=== PATIENT | female | born 1955 | race Caucasian/White ===

== ENCOUNTER 2018-12-14 15:13 | Emergency (ER) | payer MEDICARE, OTHER ==
[~2018-12-14] VITALS: Ht 170.2 cm; Wt 84.1 kg
[~2018-12-14 15:13] MED LIST: ALD50T PO; ALEN70TA13; AMOX-422 PO; CETI5TAB6; COU5T PO; DIGO125T PO; FURO80TA3 PO; HYDR-3193 PO; MULT-1039 PO; OMEG1CAP PO; ROPI2TAB4 PO; SILD20TA PO; ZOLP5TAB8 PO; [UNRECOGNIZED DRUG - OTHER]; vit C
[2018-12-14 16:12] LABS: BASOPHILS # (AUTO) 0.1 X10'3 (0-0.2); EOSINOPHILS # (AUTO) 0.1 X10'3 (0-0.9); EOSINOPHILS % (AUTO) 0.8 % (0-6); HEMOGLOBIN 14.7 g/dl (12.0-16.0); LYMPHOCYTES # (AUTO) 1.9 X10'3 (1.1-4.8); MEAN CORPUSCULAR HGB CONC 34.4 g/dL (33.0-36.5); MONOCYTES # (AUTO) 1.3 X10'3 (0-0.9)
[2018-12-14 16:14] LABS: BASOPHILS % (AUTO) 1.1 % (0-1); HEMATOCRIT 42.7 % (35.0-45.0); MEAN CORPUSCULAR HEMOGLOBIN 31.7 PG (27.0-31.0); MEAN CORPUSCULAR VOLUME 91.9 FL (78-98); MEAN PLATELET VOLUME 10.3 FL (7.4-10.4); NEUTROPHILS # (AUTO) 6.1 X10'3 (1.8-7.7); NEUTROPHILS % (AUTO) 64.1 % (42-75); PLATELET COUNT 208 X10'3 (140-440); RED BLOOD COUNT 4.65 X10'6 (4.20-5.60); RED CELL DISTRIBUTION WIDTH 15.7 % (11.5-14.5); WHITE BLOOD COUNT 9.5 X10'3 (4.5-11.0)
[2018-12-14 16:22] LABS: ALANINE AMINOTRANSFERASE 30 U/L (12-78); ALBUMIN 2.8 G/DL (3.4-5.0); ALBUMIN/GLOBULIN RATIO 0.5 (1.1-1.5); ALKALINE PHOSPHATASE 361 IU/L (46-116); ANION GAP 11 (8-16); ASPARTATE AMINO TRANSFERASE 282 U/L (10-37); BILIRUBIN,TOTAL 1.6 MG/DL (0.1-1.0); BLOOD UREA NITROGEN 12 MG/DL (7-18); BUN/CREATININE RATIO 10.9 (6.6-38.0); CALCIUM 9.6 MG/DL (8.5-10.1); CHLORIDE 97 MMOL/L (99-107); GLUCOSE 81 MG/DL (70-104); POTASSIUM 3.6 MMOL/L (3.5-5.1); SODIUM 133 MMOL/L (135-145); TOTAL PROTEIN 7.9 G/DL (6.4-8.2); eGFR 50 ML/MIN
[2018-12-14 16:26] LABS: LARGE PLATELETS FEW; PLATELET ESTIMATE NORMAL
[2018-12-14] MEDS ORDERED: morphine 4 MG/ML inj SYRINge IV PRN (18:35)
[2018-12-14] MEDS ORDERED: normal saline 1000ML IV soln IVB ONE (18:35)
[2018-12-14] MEDS ORDERED: ondansetron/PF 4mg/2ml inj IV ONE (18:35)
[2018-12-14 18:58] LABS: CLARITY,URINE SLIGHTLY CLOUDY (Clear); COLOR,URINE AMBER (Yellow); GLUCOSE, URINE NEGATIVE (Neg); KETONES,URINE NEGATIVE (Neg); LEUKOCYTE ESTERASE ,URINE SMALL (Neg); NITRITES, URINE NEGATIVE (Neg); OCCULT BLOOD,URINE NEGATIVE (Neg); PH,URINE 5.5 (4.8-8.0); PROTEIN,URINE 30 mg/dl (Neg)
[2018-12-14 19:17] LABS: UA COLLECTION TYPE CLN CATCH MIDSTREAM
[2018-12-14 19:47] LABS: FINE GRANULAR CAST 0-3 /LPF (NEGATIVE)
[2018-12-14 19:48] LABS: BACTERIA,URINE 3+ /HPF (Neg); WBC CLUMPS,URINE FEW /HPF (NEGATIVE)
[2018-12-14 19:49] LABS: MUCUS STRANDS NONE SEEN /LPF (Neg); RBC,URINE NONE SEEN /HPF (0-2); SQUAMOUS EPITHELIAL CELL,UR NONE SEEN /LPF (FEW)
[2018-12-14 20:07] VITALS: BP 113/67
--- NOTE | 2018-12-19 10:57 | NUR ---
PT CALLED AND NOTIFIED THAT URINE CULTURE TAKING ON 12/14/18 WAS POSITIVE FOR UTI AND THAT ABX WERE NEEDED. PT RE[facility] [address] IN [place]. KEFLEX 500MG PO BID x7 DAYS [facility].
== END 2018-12-14 20:09 | disposition home or self-care (01) ==
LOC: ER 15:13
DX: R10.31 Right lower quadrant pain (principal); R53.83 Other fatigue; R11.0 Nausea; R19.7 Diarrhea, unspecified; K59.00 Constipation, unspecified; I27.20 Pulmonary hypertension, unspecified; Z79.2 Long term (current) use of antibiotics; Z79.01 Long term (current) use of anticoagulants; Z79.899 Other long term (current) drug therapy; Z90.81 Acquired absence of spleen; Z90.49 Acquired absence of other specified parts of digestive tract
CPT/HCPCS: 36415; 74176; 80053; 81001; 85025; 85610; 87077; 87088; 87186; 96374; 96375; 99284; J2270; J2405; J7030

== ENCOUNTER 2019-01-05 11:12 | Inpatient (IN) | payer MEDICARE, OTHER ==
[~2019-01-05] VITALS: Ht 170.2 cm; Wt 80.5 kg
--- NOTE | 2019-01-05 14:55 | NUR ---
RECEIVED PATIENT IN BED 6 FROM THE [facility].
--- NOTE | 2019-01-05 15:06 | NUR ---
AWAITING ED PROVIDER.
[2019-01-05 15:46] LABS: BASOPHILS # (AUTO) 0.1 X10'3 (0-0.2); BASOPHILS % (AUTO) 0.4 % (0-1); EOSINOPHILS % (AUTO) 0.1 % (0-6); HEMATOCRIT 39.6 % (35.0-45.0); HEMOGLOBIN 13.8 g/dl (12.0-16.0); LYMPHOCYTES # (AUTO) 1.3 X10'3 (1.1-4.8); LYMPHOCYTES % (AUTO) 11.1 % (21-51); MEAN CORPUSCULAR HEMOGLOBIN 31.5 PG (27.0-31.0); MEAN CORPUSCULAR HGB CONC 34.8 g/dL (33.0-36.5); MEAN CORPUSCULAR VOLUME 90.3 FL (78-98); MEAN PLATELET VOLUME 10.7 FL (7.4-10.4); MONOCYTES # (AUTO) 0.8 X10'3 (0-0.9); MONOCYTES % (AUTO) 6.9 % (2-12); NEUTROPHILS # (AUTO) 9.5 X10'3 (1.8-7.7); NEUTROPHILS % (AUTO) 81.5 % (42-75); PLATELET COUNT 200 X10'3 (140-440); RED BLOOD COUNT 4.39 X10'6 (4.20-5.60); RED CELL DISTRIBUTION WIDTH 15.1 % (11.5-14.5); WHITE BLOOD COUNT 11.6 X10'3 (4.5-11.0)
[2019-01-05 15:48] LABS: ALANINE AMINOTRANSFERASE 41 U/L (12-78); ALBUMIN 2.7 G/DL (3.4-5.0); ALBUMIN/GLOBULIN RATIO 0.6 (1.1-1.5); ALKALINE PHOSPHATASE 409 IU/L (46-116); ANION GAP 3 (8-16); ASPARTATE AMINO TRANSFERASE 421 U/L (10-37); BILIRUBIN,TOTAL 2.5 MG/DL (0.1-1.0); BLOOD UREA NITROGEN 28 MG/DL (7-18); BUN/CREATININE RATIO 22.4 (6.6-38.0); CHLORIDE 76 MMOL/L (99-107); CREATININE 1.25 MG/DL (0.40-0.90); GLUCOSE 88 MG/DL (70-104); TOTAL CARBON DIOXIDE 35.4 MMOL/L (24-32); TOTAL PROTEIN 7.6 G/DL (6.4-8.2); eGFR 43 ML/MIN
[2019-01-05 15:50] LABS: SODIUM 114 MMOL/L (135-145)
[2019-01-05 15:51] LABS: POTASSIUM 2.9 MMOL/L (3.5-5.1)
[2019-01-05] MEDS ORDERED: potassium Cl 20 mEq SR tablet PO STA (15:58)
[2019-01-05 16:15] LABS: CLARITY,URINE SLIGHTLY CLOUDY (Clear); COLOR,URINE YELLOW (Yellow); GLUCOSE, URINE NEGATIVE (Neg); KETONES,URINE NEGATIVE (Neg); LEUKOCYTE ESTERASE ,URINE TRACE (Neg); NITRITES, URINE NEGATIVE (Neg); OCCULT BLOOD,URINE NEGATIVE (Neg); PROTEIN,URINE 30 mg/dl (Neg); UROBILINOGEN,URINE 0.2 E.U/dL (0.2-1.0)
[2019-01-05 16:17] LABS: URINE HCG NEGATIVE (NEG)
[2019-01-05 16:20] LABS: LARGE PLATELETS FEW; PLATELET ESTIMATE NORMAL
[2019-01-05 16:23] LABS: UA COLLECTION TYPE CLN CATCH MIDSTREAM
[2019-01-05 16:25] LABS: HYALINE CASTS 0-3 /LPF (NEGATIVE)
[2019-01-05 16:29] LABS: COARSE GRANULAR CAST 0-3 /LPF (NEGATIVE); FINE GRANULAR CAST 0-3 /LPF (NEGATIVE); RED BLOOD CELL CASTS,URINE 0-3 /LPF (NEGATIVE)
[2019-01-05 16:30] LABS: WBC,URINE 50-100 /HPF (0-4)
[2019-01-05 16:34] LABS: BACTERIA,URINE 4+ /HPF (Neg); RBC,URINE 0-2 /HPF (0-2); SQUAMOUS EPITHELIAL CELL,UR NONE SEEN /LPF (FEW)
[2019-01-05 16:45] LABS: MAGNESIUM 2.2 MG/DL (1.5-2.4)
[2019-01-05] MEDS ORDERED: ZAR2.5T PO (17:47)
[2019-01-05] MEDS ORDERED: LEVO50TA PO (17:47)
[2019-01-05] MEDS ORDERED: normal saline 1000ml 1,000 ML IV SCH (17:59)
[2019-01-05] MEDS ORDERED: magnesium Cl slow-release 64mg tablet PO PRN (18:00)
[2019-01-05] MEDS ORDERED: acetaminophen 325mg tablet PO PRN ×2 (18:00)
[2019-01-05] MEDS ORDERED: ondansetron/PF 4mg/2ml inj IV PRN (18:00)
[2019-01-05] MEDS ORDERED: morphine 2 MG/ML inj. syringe IV PRN (18:00)
[2019-01-05] MEDS ORDERED: magnesium 4gm in 100ml NS 100 ML IV PRN (18:00)
[2019-01-05] MEDS ORDERED: potassium CL 10mEq/100ml bag 100 ML IV PRN ×2 (18:00)
[2019-01-05] MEDS ORDERED: HYDROcodone/acetaminophen 5mg/325mg tablet PO PRN (18:00)
[2019-01-05] MEDS ORDERED: magnesium 2GM in 50ml NS 50 ML IV PRN (18:00)
--- NOTE | 2019-01-05 20:20 | NUR ---
Received report from Dee BARRY in ED. Was given time to ask questions and have them answered. Will assume care when patient arrives to floor.
[2019-01-05] MEDS ORDERED: temazepam 15mg capsule PO PRN (21:00)
[2019-01-05] MEDS: docusate sod 100mg capsule PO SCH (21:30)
[2019-01-05] MEDS: heparin, porcine 5000 units/ml vial SQ SCH (21:31)
[2019-01-05] MEDS: potassium Cl 20 mEq SR tablet PO PRN (21:40)
[2019-01-05 22:00] VITALS: BP 90/47
[2019-01-06] VITALS (7 sets, daily range): BP systolic 90–109; BP diastolic 49–60
[2019-01-06] MEDS: potassium Cl 20 mEq SR tablet PO PRN (01:52)
[2019-01-06 05:41] LABS: MONOCYTES # (AUTO) 0.9 X10'3 (0-0.9)
[2019-01-06 05:50] LABS: BASOPHILS # (AUTO) 0.1 X10'3 (0-0.2); BASOPHILS % (AUTO) 0.6 % (0-1); EOSINOPHILS # (AUTO) 0.1 X10'3 (0-0.9); EOSINOPHILS % (AUTO) 0.6 % (0-6); HEMATOCRIT 38.7 % (35.0-45.0); HEMOGLOBIN 13.7 g/dl (12.0-16.0); LYMPHOCYTES # (AUTO) 1.4 X10'3 (1.1-4.8); LYMPHOCYTES % (AUTO) 15.8 % (21-51); MEAN CORPUSCULAR HEMOGLOBIN 31.7 PG (27.0-31.0); MEAN CORPUSCULAR HGB CONC 35.3 g/dL (33.0-36.5); MEAN CORPUSCULAR VOLUME 89.9 FL (78-98); MEAN PLATELET VOLUME 10.8 FL (7.4-10.4); MONOCYTES % (AUTO) 9.9 % (2-12); NEUTROPHILS # (AUTO) 6.6 X10'3 (1.8-7.7); NEUTROPHILS % (AUTO) 73.1 % (42-75); PLATELET COUNT 189 X10'3 (140-440); RED BLOOD COUNT 4.31 X10'6 (4.20-5.60); RED CELL DISTRIBUTION WIDTH 14.8 % (11.5-14.5)
--- NOTE | 2019-01-06 06:15 | NUR ---
Problems reprioritized. Patient report given, questions answered & plan of care reviewed with Faiza BARRY and Esmer RN.
--- NOTE | 2019-01-06 06:20 | NUR ---
Patient in room PCU 3028B. I have received report from Mickey BARRY and had the opportunity to ask questions and assume patient care.
[2019-01-06 06:29] LABS: ALANINE AMINOTRANSFERASE 35 U/L (12-78); ANION GAP 7 (8-16); CHLORIDE 80 MMOL/L (99-107); MAGNESIUM 2.1 MG/DL (1.5-2.4); POTASSIUM 3.7 MMOL/L (3.5-5.1); TOTAL CARBON DIOXIDE 29.4 MMOL/L (24-32)
[2019-01-06 06:55] LABS: ALBUMIN 2.4 G/DL (3.4-5.0); ALBUMIN/GLOBULIN RATIO 0.5 (1.1-1.5); ASPARTATE AMINO TRANSFERASE 385 U/L (10-37); BILIRUBIN,TOTAL 2.3 MG/DL (0.1-1.0); BLOOD UREA NITROGEN 26 MG/DL (7-18); BUN/CREATININE RATIO 21.5 (6.6-38.0); CALCIUM 9.2 MG/DL (8.5-10.1); CREATININE 1.21 MG/DL (0.40-0.90); GLUCOSE 74 MG/DL (70-104); TOTAL PROTEIN 6.9 G/DL (6.4-8.2); eGFR 45 ML/MIN
[2019-01-06 07:04] LABS: ALKALINE PHOSPHATASE 379 IU/L (46-116)
[2019-01-06 07:06] LABS: SODIUM 116 MMOL/L (135-145)
--- NOTE | 2019-01-06 07:07 | NUR ---
CRITICAL LAB VALUE TAKEN FROM LAB, REPORTED TO PRIMARY RN.
--- NOTE | 2019-01-06 07:26 | NUR ---
Paged hospitalist, Dr. Rudolph, RE critical sodium called from lab. PAGER ID: [phone] MESSAGE: Esmer wise [phone]. RE Medhat Michelle 3028B. Lab reported critical sodium of 116, up from 114 on 01/05. Thank you!
[2019-01-06] MEDS: CefTRIAXone 2gm/D5W 50ml 50 ML IV SCH (07:44)
[2019-01-06] MEDS: levoTHYROXINE 25mcg tablet PO SCH (07:45)
[2019-01-06] MEDS: digoxin 125mcg (0.125mg) tablet PO SCH (07:46)
[2019-01-06] MEDS: docusate sod 100mg capsule PO SCH ×2 (07:49→19:04)
[2019-01-06] MEDS: K and/or MAG REPLACEMENT MC SCH (07:50)
[2019-01-06] MEDS: heparin, porcine 5000 units/ml vial SQ SCH ×2 (07:50→19:04)
[2019-01-06] MEDS ORDERED: normal saline 1000ml 1,000 ML IV SCH (08:30)
[2019-01-06] MEDS: normal saline 1000ml 1,000 ML IV SCH (17:14)
--- NOTE | 2019-01-06 18:09 | NUR ---
Problems reprioritized. Patient report given, questions answered & plan of care reviewed with Cara BARRY.
--- NOTE | 2019-01-06 18:24 | NUR ---
New hire documentation: I have reviewed and agree with all interventions, assessments performed and documented by Esmer BARRY.
--- NOTE | 2019-01-06 18:30 | NUR ---
Patient in room PCU 3028. I have received report from Faiza BARRY and Esmer BARRY and had the opportunity to ask questions and assume patient care.
[2019-01-06] MEDS: lactobacillus rhamnosus 10,000 MMU CELLS/CAPSULE PO SCH (19:04)
[2019-01-07] VITALS (8 sets, daily range): BP systolic 87–113; BP diastolic 43–66
[2019-01-07 06:10] LABS: BASOPHILS # (AUTO) 0.1 X10'3 (0-0.2); EOSINOPHILS # (AUTO) 0.1 X10'3 (0-0.9); HEMOGLOBIN 13.7 g/dl (12.0-16.0); LYMPHOCYTES # (AUTO) 1.4 X10'3 (1.1-4.8); LYMPHOCYTES % (AUTO) 14.5 % (21-51); MEAN CORPUSCULAR HEMOGLOBIN 31.4 PG (27.0-31.0); MEAN CORPUSCULAR HGB CONC 34.3 g/dL (33.0-36.5); MEAN CORPUSCULAR VOLUME 91.4 FL (78-98); MEAN PLATELET VOLUME 10.9 FL (7.4-10.4); MONOCYTES % (AUTO) 10.2 % (2-12); NEUTROPHILS # (AUTO) 6.9 X10'3 (1.8-7.7); NEUTROPHILS % (AUTO) 73.3 % (42-75); PLATELET COUNT 187 X10'3 (140-440); RED BLOOD COUNT 4.37 X10'6 (4.20-5.60); RED CELL DISTRIBUTION WIDTH 15.2 % (11.5-14.5); WHITE BLOOD COUNT 9.4 X10'3 (4.5-11.0)
--- NOTE | 2019-01-07 06:20 | NUR ---
Patient in room PCU 3028. I have received report from JHONNY Marroquin and had the opportunity to ask questions and assume patient care. Pt awake during report. All needs met.
--- NOTE | 2019-01-07 06:21 | NUR ---
Patient in room U 3028. I have received report from JHONNY Marroquin and had the opportunity to ask questions and assume patient care. Patient awake in bed with no complaints at this time.
--- NOTE | 2019-01-07 06:27 | NUR ---
Problems reprioritized. Patient report given, questions answered & plan of care reviewed with Lucinda BARRY and Yvrose BARRY.
[2019-01-07 06:47] LABS: ALANINE AMINOTRANSFERASE 38 U/L (12-78); ALBUMIN 2.4 G/DL (3.4-5.0); ALBUMIN/GLOBULIN RATIO 0.5 (1.1-1.5); ALKALINE PHOSPHATASE 387 IU/L (46-116); ANION GAP 8 (8-16); ASPARTATE AMINO TRANSFERASE 356 U/L (10-37); BILIRUBIN,TOTAL 2.1 MG/DL (0.1-1.0); BLOOD UREA NITROGEN 23 MG/DL (7-18); BUN/CREATININE RATIO 21.1 (6.6-38.0); CALCIUM 9.4 MG/DL (8.5-10.1); CHLORIDE 92 MMOL/L (99-107); CREATININE 1.09 MG/DL (0.40-0.90); GLUCOSE 78 MG/DL (70-104); MAGNESIUM 2.2 MG/DL (1.5-2.4); POTASSIUM 3.2 MMOL/L (3.5-5.1); SODIUM 129 MMOL/L (135-145); TOTAL CARBON DIOXIDE 29.2 MMOL/L (24-32); eGFR 50 ML/MIN
[2019-01-07 07:10] LABS: GIANT PLATELET FEW; LARGE PLATELETS FEW; PLATELET ESTIMATE NORMAL
[2019-01-07] MEDS: lactobacillus rhamnosus 10,000 MMU CELLS/CAPSULE PO SCH ×2 (07:21→20:05)
[2019-01-07] MEDS: potassium Cl 20 mEq SR tablet PO PRN ×3 (07:22→16:23)
[2019-01-07] MEDS: digoxin 125mcg (0.125mg) tablet PO SCH (07:22)
[2019-01-07] MEDS: docusate sod 100mg capsule PO SCH ×2 (07:23→20:05)
[2019-01-07] MEDS: levoTHYROXINE 25mcg tablet PO SCH (07:23)
[2019-01-07] MEDS: CefTRIAXone 2gm/D5W 50ml 50 ML IV SCH (07:25)
[2019-01-07] MEDS: heparin, porcine 5000 units/ml vial SQ SCH ×2 (07:33→20:05)
[2019-01-07] MEDS: K and/or MAG REPLACEMENT MC SCH (08:27)
--- NOTE | 2019-01-07 09:27 | NUR ---
Per Dr. León orders, resume pt on 4mg requip HS start today.
[2019-01-07] MEDS: normal saline 1000ml 1,000 ML IV SCH (13:00)
--- NOTE | 2019-01-07 18:20 | NUR ---
Patient in room PCU 3028. I have received report from Lucinda BARRY and Yvrose RN and had the opportunity to ask questions and assume patient care.
--- NOTE | 2019-01-07 18:20 | NUR ---
Problems reprioritized. Patient report given, questions answered & plan of care reviewed with JHONNY Marroquin.
--- NOTE | 2019-01-07 18:20 | NUR ---
Problems reprioritized. Patient report given, questions answered & plan of care reviewed with Cara BARRY. Patient stable at transfer of care.
--- NOTE | 2019-01-07 18:58 | NUR ---
[place]rient[place] documentation: I have reviewed and agree with all interventions, assessments performed and documented by JHONNY Frances. [place] Medication Administration: For this medication-pass time frame, all medication were reviewed, dispensed, administered and documented per hospital policy by JHONNY Frances.
[2019-01-07] MEDS ORDERED: ROPINIRole 1mg tablet PO SCH (21:00)
[2019-01-08 02:00] VITALS: BP 90/54
[2019-01-08 05:05] LABS: BASOPHILS # (AUTO) 0.1 X10'3 (0-0.2); BASOPHILS % (AUTO) 1.3 % (0-1); EOSINOPHILS # (AUTO) 0.2 X10'3 (0-0.9); EOSINOPHILS % (AUTO) 1.9 % (0-6); HEMATOCRIT 36.3 % (35.0-45.0); HEMOGLOBIN 12.4 g/dl (12.0-16.0); LYMPHOCYTES # (AUTO) 1.7 X10'3 (1.1-4.8); LYMPHOCYTES % (AUTO) 16.8 % (21-51); MEAN CORPUSCULAR HEMOGLOBIN 31.2 PG (27.0-31.0); MEAN CORPUSCULAR HGB CONC 34.2 g/dL (33.0-36.5); MEAN CORPUSCULAR VOLUME 91.3 FL (78-98); MEAN PLATELET VOLUME 10.7 FL (7.4-10.4); MONOCYTES # (AUTO) 1.2 X10'3 (0-0.9); MONOCYTES % (AUTO) 11.8 % (2-12); NEUTROPHILS # (AUTO) 6.9 X10'3 (1.8-7.7); NEUTROPHILS % (AUTO) 68.2 % (42-75); PLATELET COUNT 174 X10'3 (140-440); RED BLOOD COUNT 3.98 X10'6 (4.20-5.60); RED CELL DISTRIBUTION WIDTH 15.2 % (11.5-14.5); WHITE BLOOD COUNT 10.1 X10'3 (4.5-11.0)
[2019-01-08 05:57] LABS: ALANINE AMINOTRANSFERASE 31 U/L (12-78); ALBUMIN 2.1 G/DL (3.4-5.0); ALBUMIN/GLOBULIN RATIO 0.5 (1.1-1.5); ALKALINE PHOSPHATASE 334 IU/L (46-116); ANION GAP 9 (8-16); ASPARTATE AMINO TRANSFERASE 284 U/L (10-37); BILIRUBIN,TOTAL 1.6 MG/DL (0.1-1.0); BLOOD UREA NITROGEN 18 MG/DL (7-18); BUN/CREATININE RATIO 14.6 (6.6-38.0); CHLORIDE 95 MMOL/L (99-107); CREATININE 1.23 MG/DL (0.40-0.90); GLUCOSE 84 MG/DL (70-104); MAGNESIUM 1.9 MG/DL (1.5-2.4); POTASSIUM 3.5 MMOL/L (3.5-5.1); SODIUM 129 MMOL/L (135-145); TOTAL CARBON DIOXIDE 25.3 MMOL/L (24-32); TOTAL PROTEIN 6.5 G/DL (6.4-8.2); eGFR 44 ML/MIN
[2019-01-08 06:00] VITALS: BP 98/56
--- NOTE | 2019-01-08 06:19 | NUR ---
Problems reprioritized. Patient report given, questions answered & plan of care reviewed with Salina BARRY.
--- NOTE | 2019-01-08 06:32 | NUR ---
Patient in room PCU 3028. I have received report from Cara BARRY and had the opportunity to ask questions and assume patient care.
[2019-01-08 07:01] LABS: LARGE PLATELETS FEW; PLATELET ESTIMATE NORMAL
[2019-01-08] MEDS: K and/or MAG REPLACEMENT MC SCH (08:00)
[2019-01-08] MEDS: CefTRIAXone 2gm/D5W 50ml 50 ML IV SCH (08:41)
[2019-01-08] MEDS: levoTHYROXINE 25mcg tablet PO SCH (08:41)
[2019-01-08] MEDS: docusate sod 100mg capsule PO SCH (08:42)
[2019-01-08] MEDS: digoxin 125mcg (0.125mg) tablet PO SCH (08:42)
[2019-01-08] MEDS: lactobacillus rhamnosus 10,000 MMU CELLS/CAPSULE PO SCH (08:42)
[2019-01-08] MEDS: heparin, porcine 5000 units/ml vial SQ SCH (08:43)
[2019-01-08] MEDS ORDERED: CEFD300C3 PO (10:14)
[2019-01-08 11:00] VITALS: BP 101/57
--- NOTE | 2019-01-08 11:04 | NUR ---
Patient aware of the discharge order. Patient stated that her ride will be available around 13:00. Charge nurse Orlando notified
--- NOTE | 2019-01-08 11:35 | NUR ---
Discharge instructions given to patient, patient verbalized understanding of all instructions made. New prescription transmitted to pharmacy of choice. Patient awaiting for her ride at around 13:00. Will d/c the peripheral IV catheter and tele later
--- NOTE | 2019-01-08 13:33 | NUR ---
Patient's family came by ready to give patient a ride home. Peripheral IV catheter removed, tip intact. Tele box discontinued.
== END 2019-01-08 13:38 | disposition home or self-care (01) | DRG 640 ==
LOC: ER 11:13 → ED HOLD 17:59 → PCU 3S 19:30
PROVIDERS: ADMIT Internal Medicine; ATTEND Family Medicine
DX: E87.1 Hypo-osmolality and hyponatremia (principal); G93.41 Metabolic encephalopathy; N39.0 Urinary tract infection, site not specified; E87.6 Hypokalemia; I27.20 Pulmonary hypertension, unspecified; N18.9 Chronic kidney disease, unspecified; K70.30 Alcoholic cirrhosis of liver without ascites; N18.3 Chronic kidney disease, stage 3 (moderate); B96.1 Klebsiella pneumoniae [K. pneumoniae] as the cause of diseases classified elsewhere; Z79.01 Long term (current) use of anticoagulants; Z95.828 Presence of other vascular implants and grafts; Z79.899 Other long term (current) drug therapy
CPT/HCPCS: 36415; 80053; 80162; 81001; 81025; 82140; 83605; 83735; 84300; 84443; 85025; 85610; 87040; 87077; 87081; 87088; 87186; 93005; 93306; 97116; 97161; 97530; 99285; G0378; J0696; J1644; J7030

== ENCOUNTER 2019-02-12 15:25 | Inpatient (IN) | payer MEDICARE, OTHER ==
[~2019-02-12] VITALS: Ht 172.7 cm; Wt 79.0 kg
[~2019-02-12 15:25] MED LIST changes: -ALEN70TA13; -AMOX-422 PO; -CETI5TAB6; -FURO80TA3 PO; -HYDR-3193 PO; +LEVO50TA PO; -MULT-1039 PO; -OMEG1CAP PO; -SILD20TA PO; -ZOLP5TAB8 PO; -[UNRECOGNIZED DRUG - OTHER]; -vit C
[2019-02-12 16:17] LABS: BASOPHILS % (AUTO) 0.3 % (0-1); EOSINOPHILS % (AUTO) 0.2 % (0-6); HEMATOCRIT 29.2 % (35.0-45.0); HEMOGLOBIN 9.9 g/dl (12.0-16.0); LYMPHOCYTES # (AUTO) 1.4 X10'3 (1.1-4.8); LYMPHOCYTES % (AUTO) 8.8 % (21-51); MEAN CORPUSCULAR HEMOGLOBIN 30.2 PG (27.0-31.0); MEAN CORPUSCULAR HGB CONC 33.9 g/dL (33.0-36.5); MEAN CORPUSCULAR VOLUME 88.9 FL (78-98); MEAN PLATELET VOLUME 9.7 FL (7.4-10.4); MONOCYTES # (AUTO) 1.1 X10'3 (0-0.9); MONOCYTES % (AUTO) 7.3 % (2-12); NEUTROPHILS % (AUTO) 83.4 % (42-75); PLATELET COUNT 194 X10'3 (140-440); RED BLOOD COUNT 3.28 X10'6 (4.20-5.60); RED CELL DISTRIBUTION WIDTH 16.8 % (11.5-14.5); WHITE BLOOD COUNT 15.6 X10'3 (4.5-11.0)
[2019-02-12 16:30] LABS: ALANINE AMINOTRANSFERASE 59 U/L (12-78); ALBUMIN 1.9 G/DL (3.4-5.0); ALBUMIN/GLOBULIN RATIO 0.4 (1.1-1.5); ALKALINE PHOSPHATASE 527 IU/L (46-116); ANION GAP 11 (8-16); ASPARTATE AMINO TRANSFERASE 785 U/L (10-37); BILIRUBIN,TOTAL 1.3 MG/DL (0.1-1.0); BLOOD UREA NITROGEN 100 MG/DL (7-18); BUN/CREATININE RATIO 35.1 (6.6-38.0); CHLORIDE 81 MMOL/L (99-107); CREATININE 2.85 MG/DL (0.40-0.90); GLUCOSE 102 MG/DL (70-104); POTASSIUM 4.2 MMOL/L (3.5-5.1); TOTAL CARBON DIOXIDE 23.1 MMOL/L (24-32); TOTAL PROTEIN 6.6 G/DL (6.4-8.2); eGFR 17 ML/MIN
[2019-02-12 16:36] LABS: SODIUM 115 MMOL/L (135-145)
[2019-02-12] MEDS ORDERED: normal saline 1000ML IV soln IVB ONE ×2 (16:40→17:30)
[2019-02-12 16:43] LABS: PARTIAL THROMBOPLASTIN TIME 66 SECONDS (22-32)
--- NOTE | 2019-02-12 16:59 | NUR ---
PATEE INFORMED OF ABNORMAL LABS PT, PTT, INR
--- NOTE | 2019-02-12 17:04 | NUR ---
ATTEMPTED IV X2 , UNSUCCESSFUL
[2019-02-12] MEDS ORDERED: phytonadione inj. 5 MG in normal saline 100ml IV soln 99.5 ML IV ONE (17:30)
[2019-02-12] MEDS ORDERED: POTA10CA44 PO (18:15)
[2019-02-12] MEDS ORDERED: ATOR-2 PO (18:20)
[2019-02-12] MEDS ORDERED: ROPI4TAB6 PO (18:20)
[2019-02-12] MEDS ORDERED: FURO40TA4 PO (18:21)
[2019-02-12] MEDS ORDERED: MACI10TA2 PO (18:24)
[2019-02-12] MEDS ORDERED: magnesium 4gm in 100ml NS 100 ML IV PRN (18:50)
[2019-02-12] MEDS ORDERED: ondansetron/PF 4mg/2ml inj IV PRN (18:50)
[2019-02-12] MEDS ORDERED: magnesium hydroxide 30ml (MOM) UD suspension PO PRN (18:50)
[2019-02-12] MEDS ORDERED: pantoprazole 40 MG vial IV ONE (18:50)
[2019-02-12] MEDS ORDERED: magnesium 2GM in 50ml NS 50 ML IV PRN (18:50)
[2019-02-12] MEDS ORDERED: potassium CL 10mEq/100ml bag 100 ML IV PRN ×2 (18:50)
[2019-02-12] MEDS ORDERED: metoclopramide 5 mg/ml inj IV PRN (18:50)
[2019-02-12] MEDS ORDERED: mag hydrox/Alum hydrox/simeth 30ml oral suspension PO PRN (18:50)
[2019-02-12] MEDS ORDERED: potassium Cl 20 mEq SR tablet PO PRN ×2 (18:50)
[2019-02-12] MEDS ORDERED: magnesium Cl slow-release 64mg tablet PO PRN (18:50)
--- NOTE | 2019-02-12 18:56 | NUR ---
ASKED JAIMIE WESTON TO DO MEDICATION RECONCILIATION
[2019-02-12 19:10] LABS: MAGNESIUM 2.4 MG/DL (1.5-2.4); PHOSPHORUS 4.6 MG/DL (2.3-4.5)
[2019-02-12] MEDS: MACITENTAN 10 MG PO SCH (19:10)
[2019-02-12 19:25] LABS: OCCULT BLOOD STOOL POSITIVE (Neg)
[2019-02-12] MEDS: normal saline 1000ml 1,000 ML IV SCH (19:45)
[2019-02-12] MEDS: CefTRIAXone/D5W-Rocephin 1gm 50 ML IV SCH (19:45)
--- NOTE | 2019-02-12 19:45 | NUR ---
MD Izzy aware of critically low Na level, as well as critically high PT and INR, no new orders received. Patient's BP 89/41. No new orders received. Will continue to monitor patient. Addendum: 02/13/19 at 0200 by Marietta Moya RN 02/12/20192044 MD Izzy aware of critically low Na level, as well as critically high PT and INR, no new orders received. Patient's BP 89/41. No new orders received. Will continue to monitor patient.
[2019-02-12] MEDS: K and/or MAG REPLACEMENT MC SCH (20:00)
--- NOTE | 2019-02-12 20:27 | NUR ---
SPOKE WITH DR MUNOZ REGARDING NA =115, INR STILL OVER 8.0, ANS UPDATED ON VITALS
[2019-02-12] MEDS ORDERED: phytonadione inj. 10 MG in normal saline 100ml IV soln 99 ML IV ONE (20:30)
--- NOTE | 2019-02-12 20:39 | NUR ---
DISCUSSED PLAN OF CARE AGAIN WITH DR MUNOZ AND NOW WOULD LIKE FFP GIVEN, WILL CALL LAB AGAIN
[2019-02-12 20:54] LABS: ALBUMIN 1.8 G/DL (3.4-5.0); ANION GAP 10 (8-16); BLOOD UREA NITROGEN 96 MG/DL (7-18); BUN/CREATININE RATIO 36.5 (6.6-38.0); CALCIUM 8.6 MG/DL (8.5-10.1); CHLORIDE 82 MMOL/L (99-107); CREATININE 2.63 MG/DL (0.40-0.90); GLUCOSE 83 MG/DL (70-104); POTASSIUM 4.2 MMOL/L (3.5-5.1); TOTAL CARBON DIOXIDE 24.4 MMOL/L (24-32); eGFR 18 ML/MIN
--- NOTE | 2019-02-12 20:55 | NUR ---
Received report from JHONNY Zamora. Awaiting patient arrival to the floor.
--- NOTE | 2019-02-12 20:56 | NUR ---
PHONE REPORT TO JHONNY LAMA. PATIENT TO GO TO ROOM 345B ON [facility]. DAINA BARRY AWARE THAT SHE NEEDS TO GIVE 2 FFP AND START PROTONIX GTT. VITAMIN K INFUSING. NO ORDER FOR TELE.
[2019-02-12 20:57] LABS: SODIUM 116 MMOL/L (135-145)
[2019-02-12] MEDS ORDERED: temazepam 15mg capsule PO PRN (21:00)
[2019-02-12 21:20] VITALS: BP 91/36
[2019-02-12 21:25] VITALS: BP 98/52
[2019-02-12] MEDS: pantoprazole 40MG/NS 100ML BAG 100 ML IV SCH (22:12)
[2019-02-12] MEDS: ROPINIRole 1mg tablet PO SCH (22:15)
--- NOTE | 2019-02-12 22:50 | NUR ---
2250 Walked into patient's room to administer FFP, saw patient sitting up eating jello and then slowly fall back to bed. Woke up patient and asked if she was juanpablo. She stated she's feeling dizzy. Patient appeared to be very weak, but awake, alert and oriented x4. Vital Signs: Temp: 97.5 BP: 62/38 manually, O2 sat 92% RA, 16 RR, and HR 63. 2255 Called rapid response. RADHA PearceN assessed patient. Gave 250mL bolus, ordered [facility]; josiane Magana MD. Now BP 56/22 and O2 sat 96% 2L NC. 0 MD Izzy in room, ordered 750ml more of bolus. He will speak to gender studies professor Enrique SLOAN for further plans. 2319 Patient's BP 68/35 2324 Patient will be transferred to ICU room 2044. JHONNY Ward will be the nurse. 2328 Second unit of FFP started.
[2019-02-12 22:56] VITALS: BP 58/21
[2019-02-12 23:00] VITALS: BP 59/24
--- NOTE | 2019-02-12 23:22 | NUR ---
Reported off to JHONNY Ward. Patient will be transferred to room 4 in ICU. Problems reprioritized. Patient report given, questions answered & plan of care reviewed.
--- NOTE | 2019-02-12 23:23 | NUR ---
Mio Lin [Significant Other] Daughter Lorene [phone]
[2019-02-12 23:30] VITALS: BP 79/41
--- NOTE | 2019-02-12 23:30 | NUR ---
Received report via telephone from Marietta BARRY.
[2019-02-12 23:31] LABS: ABG BASE EXCESS 0.3 mmol/L (-2.0-3.0); ABG HCO3 23.2 mmol/L (22.0-26.0); ABG OXYGEN SATURATION 94.8 % (95-98); ABG PH (T) 7.504 (7.350-7.450); ABG PO2 (T) 71.3 mmHg (83-108); FCOHb 0.3 % (0.5-1.5); FLOW 2 L/min; FMetHb 0.1 % (0.3-1.12); FO2Hb 94.4 % (94-100); PATIENT TEMPERATURE 36.4; RESPIRATORY RATE (OBSERVED) 16 b/min; TOTAL HEMOGLOBIN 8.8 G/dl (12.0-16.0)
[2019-02-12 23:32] LABS: BASOPHILS # (AUTO) 0.1 X10'3 (0-0.2); BASOPHILS % (AUTO) 0.5 % (0-1); EOSINOPHILS # (AUTO) 0.1 X10'3 (0-0.9); EOSINOPHILS % (AUTO) 0.4 % (0-6); HEMATOCRIT 22.7 % (35.0-45.0); HEMOGLOBIN 7.7 g/dl (12.0-16.0); LYMPHOCYTES # (AUTO) 2.5 X10'3 (1.1-4.8); MEAN CORPUSCULAR HEMOGLOBIN 29.8 PG (27.0-31.0); MEAN CORPUSCULAR HGB CONC 33.8 g/dL (33.0-36.5); MEAN CORPUSCULAR VOLUME 88.3 FL (78-98); MEAN PLATELET VOLUME 9.6 FL (7.4-10.4); MONOCYTES # (AUTO) 1.2 X10'3 (0-0.9); MONOCYTES % (AUTO) 8.3 % (2-12); NEUTROPHILS # (AUTO) 10.3 X10'3 (1.8-7.7); NEUTROPHILS % (AUTO) 72.8 % (42-75); PLATELET COUNT 159 X10'3 (140-440); RED BLOOD COUNT 2.57 X10'6 (4.20-5.60); RED CELL DISTRIBUTION WIDTH 16.6 % (11.5-14.5); WHITE BLOOD COUNT 14.1 X10'3 (4.5-11.0)
[2019-02-12 23:46] LABS: D-DIMER 1.08 MG/L FEU (0-0.50); PARTIAL THROMBOPLASTIN TIME 51 SECONDS (22-32)
[2019-02-12 23:49] LABS: ALBUMIN 1.5 G/DL (3.4-5.0); ANION GAP 8 (8-16); BLOOD UREA NITROGEN 96 MG/DL (7-18); BUN/CREATININE RATIO 35.6 (6.6-38.0); CALCIUM 8.5 MG/DL (8.5-10.1); CHLORIDE 85 MMOL/L (99-107); GLUCOSE 93 MG/DL (70-104); PHOSPHORUS 4.6 MG/DL (2.3-4.5); POTASSIUM 3.9 MMOL/L (3.5-5.1); TOTAL CARBON DIOXIDE 23.8 MMOL/L (24-32); TROPONIN I < 0.04 NG/ML (0.0-0.05); eGFR 18 ML/MIN
--- NOTE | 2019-02-12 23:50 | NUR ---
Patient transported to ICU accompanied by Ramses, setter machine and Gavi. Placed in room 2044.
[2019-02-12 23:53] LABS: SODIUM 117 MMOL/L (135-145)
[2019-02-12 23:55] LABS: PLATELET COUNT 159 X10'3 (140-440)
[2019-02-13] VITALS (32 sets, daily range): BP systolic 86–111; BP diastolic 37–55
--- NOTE | 2019-02-13 | NUR ---
Patient in room ICU 2044. I have received report from Marietta BARRY and had the opportunity to ask questions and assume patient care. Patient rapid response from 345B, transferred VIA bed accompanied by ICU charge nurse. Patient transferred to bed 2044 and connected to monitors. Joe Cano AIR BRAKE RIGGER at bedside. New orders received.
[2019-02-13] MEDS: pantoprazole 40MG/NS 100ML BAG 100 ML IV SCH ×6 (01:29→22:15)
[2019-02-13 04:32] LABS: BASOPHILS % (AUTO) 0.2 % (0-1); EOSINOPHILS % (AUTO) 0.2 % (0-6); HEMATOCRIT 25.7 % (35.0-45.0); HEMOGLOBIN 8.7 g/dl (12.0-16.0); LYMPHOCYTES # (AUTO) 1.5 X10'3 (1.1-4.8); LYMPHOCYTES % (AUTO) 11.4 % (21-51); MEAN CORPUSCULAR HEMOGLOBIN 29.9 PG (27.0-31.0); MEAN CORPUSCULAR HGB CONC 33.9 g/dL (33.0-36.5); MEAN CORPUSCULAR VOLUME 88.1 FL (78-98); MEAN PLATELET VOLUME 9.8 FL (7.4-10.4); MONOCYTES # (AUTO) 1.3 X10'3 (0-0.9); MONOCYTES % (AUTO) 10.3 % (2-12); NEUTROPHILS # (AUTO) 10.2 X10'3 (1.8-7.7); NEUTROPHILS % (AUTO) 77.9 % (42-75); PLATELET COUNT 157 X10'3 (140-440); RED BLOOD COUNT 2.91 X10'6 (4.20-5.60); RED CELL DISTRIBUTION WIDTH 16.1 % (11.5-14.5); WHITE BLOOD COUNT 13.1 X10'3 (4.5-11.0)
[2019-02-13] MEDS: normal saline 1000ml 1,000 ML IV SCH ×2 (04:51→15:16)
[2019-02-13 04:59] LABS: PARTIAL THROMBOPLASTIN TIME 43 SECONDS (22-32)
[2019-02-13 05:19] LABS: ALANINE AMINOTRANSFERASE 44 U/L (12-78); ALBUMIN 1.7 G/DL (3.4-5.0); ALBUMIN/GLOBULIN RATIO 0.4 (1.1-1.5); ALKALINE PHOSPHATASE 400 IU/L (46-116); ANION GAP 10 (8-16); ASPARTATE AMINO TRANSFERASE 595 U/L (10-37); BILIRUBIN,TOTAL 1.4 MG/DL (0.1-1.0); BLOOD UREA NITROGEN 93 MG/DL (7-18); BUN/CREATININE RATIO 36.2 (6.6-38.0); CHLORIDE 87 MMOL/L (99-107); CHOL/HDL RATIO 5.4 (0.00-4.99); CHOLESTEROL 92 MG/DL (0-200); CREATININE 2.57 MG/DL (0.40-0.90); GLUCOSE 78 MG/DL (70-104); HDL CHOLESTEROL 17 MG/DL (35-60); LDL CHOLESTEROL 68 MG/DL (50-100); MAGNESIUM 2.2 MG/DL (1.5-2.4); PHOSPHORUS 4.7 MG/DL (2.3-4.5); POTASSIUM 4.2 MMOL/L (3.5-5.1); TOTAL CARBON DIOXIDE 23.3 MMOL/L (24-32); TOTAL PROTEIN 5.5 G/DL (6.4-8.2); TRIGLYCERIDES 58 MG/DL (20-135); eGFR 19 ML/MIN
[2019-02-13 05:20] LABS: SODIUM 120 MMOL/L (135-145)
--- NOTE | 2019-02-13 05:23 | NUR ---
received critical NA 120. No new orders at this time
[2019-02-13] MEDS: K and/or MAG REPLACEMENT MC SCH ×2 (06:41→20:00)
[2019-02-13] MEDS: levoTHYROXINE 25mcg tablet PO SCH (07:16)
[2019-02-13] MEDS: digoxin 125mcg (0.125mg) tablet PO SCH (07:16)
[2019-02-13] MEDS: potassium Cl 20 mEq SR tablet PO SCH (07:17)
[2019-02-13] MEDS: CefTRIAXone/D5W-Rocephin 1gm 50 ML IV SCH (07:20)
[2019-02-13] MEDS: spironolactone 50 MG tablet PO SCH (07:21)
[2019-02-13] MEDS: MACITENTAN 10 MG PO SCH ×3 (07:56→10:41)
[2019-02-13] MEDS ORDERED: furosemide 40mg tablet PO SCH (08:00)
[2019-02-13] MEDS: thiamine inj. 100 MG in normal saline 100ml IV soln 99 ML IV SCH (11:55)
[2019-02-13] MEDS: MVI, adult No.4 with vit. K 10 ML in dextrose 5% water 500ml 500 ML IV SCH ×2 (11:56)
--- NOTE | 2019-02-13 12:00 | NUR ---
Pt primary care provider is Dr. Simmons: [phone] (in [place], [place]). GI doctor is Dr. Mitesh Santiago (also in [place], [place]).
[2019-02-13 12:39] LABS: HEMATOCRIT 27.3 % (35.0-45.0); HEMOGLOBIN 9.4 g/dl (12.0-16.0); MEAN CORPUSCULAR HEMOGLOBIN 30.2 PG (27.0-31.0); MEAN CORPUSCULAR HGB CONC 34.4 g/dL (33.0-36.5); MEAN CORPUSCULAR VOLUME 87.8 FL (78-98); MEAN PLATELET VOLUME 10.2 FL (7.4-10.4); PLATELET COUNT 181 X10'3 (140-440); RED BLOOD COUNT 3.11 X10'6 (4.20-5.60); RED CELL DISTRIBUTION WIDTH 16.1 % (11.5-14.5); WHITE BLOOD COUNT 13.3 X10'3 (4.5-11.0)
[2019-02-13] MEDS ORDERED: fentaNYL/PF 50MCG/1 ML 2ML syringe ONE (13:32)
[2019-02-13] MEDS ORDERED: MIDAZolam 5mg/5ml vial ONE (13:33)
[2019-02-13] MEDS ORDERED: LIDOcaine Viscous 15ml cup ONE (13:33)
--- NOTE | 2019-02-13 18:15 | NUR ---
received report from JHONNY Gruber
[2019-02-13 18:20] LABS: HEMATOCRIT 26.8 % (35.0-45.0); MEAN CORPUSCULAR HEMOGLOBIN 29.8 PG (27.0-31.0); MEAN CORPUSCULAR HGB CONC 33.7 g/dL (33.0-36.5); MEAN CORPUSCULAR VOLUME 88.5 FL (78-98); MEAN PLATELET VOLUME 10.1 FL (7.4-10.4); PLATELET COUNT 182 X10'3 (140-440); RED BLOOD COUNT 3.03 X10'6 (4.20-5.60); RED CELL DISTRIBUTION WIDTH 16.5 % (11.5-14.5); WHITE BLOOD COUNT 14.4 X10'3 (4.5-11.0)
[2019-02-13] MEDS: ROPINIRole 1mg tablet PO SCH (20:24)
[2019-02-13] MEDS: lactobacillus rhamnosus 10,000 MMU CELLS/CAPSULE PO SCH (20:24)
[2019-02-13 23:37] LABS: HEMATOCRIT 26.5 % (35.0-45.0); MEAN CORPUSCULAR HEMOGLOBIN 30.2 PG (27.0-31.0); MEAN CORPUSCULAR HGB CONC 34.1 g/dL (33.0-36.5); MEAN CORPUSCULAR VOLUME 88.3 FL (78-98); PLATELET COUNT 183 X10'3 (140-440); RED CELL DISTRIBUTION WIDTH 16.3 % (11.5-14.5); WHITE BLOOD COUNT 15.2 X10'3 (4.5-11.0)
[2019-02-14] VITALS (15 sets, daily range): BP systolic 100–123; BP diastolic 46–68
[2019-02-14] MEDS: normal saline 1000ml 1,000 ML IV SCH (01:18)
[2019-02-14] MEDS: pantoprazole 40MG/NS 100ML BAG 100 ML IV SCH ×2 (03:54→08:49)
[2019-02-14 06:11] LABS: BASOPHILS # (AUTO) 0.1 X10'3 (0-0.2); BASOPHILS % (AUTO) 0.5 % (0-1); EOSINOPHILS % (AUTO) 0.2 % (0-6); HEMATOCRIT 26.9 % (35.0-45.0); HEMOGLOBIN 9.2 g/dl (12.0-16.0); LYMPHOCYTES # (AUTO) 1.6 X10'3 (1.1-4.8); LYMPHOCYTES % (AUTO) 11.1 % (21-51); MEAN CORPUSCULAR HEMOGLOBIN 29.9 PG (27.0-31.0); MEAN CORPUSCULAR VOLUME 87.9 FL (78-98); MEAN PLATELET VOLUME 9.8 FL (7.4-10.4); MONOCYTES # (AUTO) 1.4 X10'3 (0-0.9); MONOCYTES % (AUTO) 9.3 % (2-12); NEUTROPHILS # (AUTO) 11.7 X10'3 (1.8-7.7); NEUTROPHILS % (AUTO) 78.9 % (42-75); PLATELET COUNT 180 X10'3 (140-440); RED BLOOD COUNT 3.06 X10'6 (4.20-5.60); RED CELL DISTRIBUTION WIDTH 16.5 % (11.5-14.5); WHITE BLOOD COUNT 14.8 X10'3 (4.5-11.0)
[2019-02-14 06:25] LABS: PARTIAL THROMBOPLASTIN TIME 37 SECONDS (22-32)
--- NOTE | 2019-02-14 06:32 | NUR ---
gave report to Art, RN
[2019-02-14 06:38] LABS: ALANINE AMINOTRANSFERASE 55 U/L (12-78); ALBUMIN 1.8 G/DL (3.4-5.0); ALBUMIN/GLOBULIN RATIO 0.4 (1.1-1.5); ALKALINE PHOSPHATASE 459 IU/L (46-116); ANION GAP 9 (8-16); ASPARTATE AMINO TRANSFERASE 625 U/L (10-37); BILIRUBIN,TOTAL 1.8 MG/DL (0.1-1.0); BLOOD UREA NITROGEN 90 MG/DL (7-18); BUN/CREATININE RATIO 37.7 (6.6-38.0); CALCIUM 8.2 MG/DL (8.5-10.1); CHLORIDE 90 MMOL/L (99-107); CREATININE 2.39 MG/DL (0.40-0.90); GLUCOSE 83 MG/DL (70-104); MAGNESIUM 2.3 MG/DL (1.5-2.4); PHOSPHORUS 3.8 MG/DL (2.3-4.5); POTASSIUM 4.1 MMOL/L (3.5-5.1); SODIUM 121 MMOL/L (135-145); TOTAL CARBON DIOXIDE 22.2 MMOL/L (24-32); eGFR 20 ML/MIN
[2019-02-14] MEDS: K and/or MAG REPLACEMENT MC SCH ×2 (08:00→19:10)
[2019-02-14 08:18] LABS: HBSAG SCREEN Negative (Negative); HEP A AB, IGM Negative (Negative); HEP B CORE AB, IGM Negative (Negative); HEPATITIS C ANTIBODY 2.1 s/co ratio (0.0-0.9)
[2019-02-14] MEDS: thiamine inj. 100 MG in normal saline 100ml IV soln 99 ML IV SCH (08:49)
[2019-02-14] MEDS: CefTRIAXone/D5W-Rocephin 1gm 50 ML IV SCH (08:49)
[2019-02-14] MEDS: MACITENTAN 10 MG PO SCH (08:50)
[2019-02-14] MEDS: lactobacillus rhamnosus 10,000 MMU CELLS/CAPSULE PO SCH ×2 (08:51→19:23)
[2019-02-14] MEDS: levoTHYROXINE 25mcg tablet PO SCH (08:51)
[2019-02-14] MEDS: digoxin 125mcg (0.125mg) tablet PO SCH (08:51)
[2019-02-14] MEDS: potassium Cl 20 mEq SR tablet PO SCH (08:51)
[2019-02-14] MEDS: spironolactone 50 MG tablet PO SCH (08:51)
[2019-02-14] MEDS: MVI, adult No.4 with vit. K 10 ML in dextrose 5% water 500ml 500 ML IV SCH ×2 (10:49)
[2019-02-14 12:32] LABS: HEMATOCRIT 28.5 % (35.0-45.0); HEMOGLOBIN 9.6 g/dl (12.0-16.0); MEAN CORPUSCULAR HEMOGLOBIN 29.8 PG (27.0-31.0); MEAN CORPUSCULAR HGB CONC 33.8 g/dL (33.0-36.5); MEAN CORPUSCULAR VOLUME 88.1 FL (78-98); MEAN PLATELET VOLUME 9.5 FL (7.4-10.4); PLATELET COUNT 188 X10'3 (140-440); RED BLOOD COUNT 3.24 X10'6 (4.20-5.60); RED CELL DISTRIBUTION WIDTH 16.3 % (11.5-14.5); WHITE BLOOD COUNT 15.2 X10'3 (4.5-11.0)
--- NOTE | 2019-02-14 15:05 | NUR ---
RECEIVED REPORT FROM ART, RN. AWAITING PATIENT TO ROOM 357A.
--- NOTE | 2019-02-14 16:23 | NUR ---
received patient to room 357a via bed accompanied by x2 staff. patient transferred to bed with assist. patient is A&O on placed on 2LNC. Patient oriented to room and call light. call light placed within reach. bed is low and locked.
--- NOTE | 2019-02-14 18:32 | NUR ---
Problems reprioritized. Patient report given, questions answered & plan of care reviewed with Vinod BARRY.
[2019-02-14 19:23] LABS: HEMATOCRIT 32.5 % (35.0-45.0); HEMOGLOBIN 10.9 g/dl (12.0-16.0); MEAN CORPUSCULAR HEMOGLOBIN 29.8 PG (27.0-31.0); MEAN CORPUSCULAR HGB CONC 33.6 g/dL (33.0-36.5); MEAN CORPUSCULAR VOLUME 88.5 FL (78-98); MEAN PLATELET VOLUME 9.8 FL (7.4-10.4); PLATELET COUNT 196 X10'3 (140-440); RED BLOOD COUNT 3.67 X10'6 (4.20-5.60); RED CELL DISTRIBUTION WIDTH 16.5 % (11.5-14.5); WHITE BLOOD COUNT 16.6 X10'3 (4.5-11.0)
[2019-02-14] MEDS: pantoprazole 40mg Tablet.DR PO SCH (19:23)
[2019-02-14] MEDS: ROPINIRole 1mg tablet PO SCH (21:33)
[2019-02-15] VITALS: BP 105/56
[2019-02-15 00:53] LABS: BASOPHILS # (AUTO) 0.1 X10'3 (0-0.2); BASOPHILS % (AUTO) 0.6 % (0-1); EOSINOPHILS # (AUTO) 0.1 X10'3 (0-0.9); EOSINOPHILS % (AUTO) 0.6 % (0-6); HEMATOCRIT 27.7 % (35.0-45.0); HEMOGLOBIN 9.4 g/dl (12.0-16.0); LYMPHOCYTES # (AUTO) 1.2 X10'3 (1.1-4.8); LYMPHOCYTES % (AUTO) 7.6 % (21-51); MEAN CORPUSCULAR HEMOGLOBIN 29.8 PG (27.0-31.0); MEAN CORPUSCULAR HGB CONC 33.9 g/dL (33.0-36.5); MEAN CORPUSCULAR VOLUME 88.1 FL (78-98); MEAN PLATELET VOLUME 9.9 FL (7.4-10.4); MONOCYTES # (AUTO) 1.3 X10'3 (0-0.9); MONOCYTES % (AUTO) 8.4 % (2-12); NEUTROPHILS # (AUTO) 13.2 X10'3 (1.8-7.7); NEUTROPHILS % (AUTO) 82.8 % (42-75); PLATELET COUNT 194 X10'3 (140-440); RED BLOOD COUNT 3.14 X10'6 (4.20-5.60); RED CELL DISTRIBUTION WIDTH 16.7 % (11.5-14.5)
[2019-02-15 01:03] LABS: PARTIAL THROMBOPLASTIN TIME 35 SECONDS (22-32)
[2019-02-15 01:06] LABS: ALANINE AMINOTRANSFERASE 52 U/L (12-78); ALBUMIN 1.8 G/DL (3.4-5.0); ALBUMIN/GLOBULIN RATIO 0.4 (1.1-1.5); ALKALINE PHOSPHATASE 440 IU/L (46-116); ANION GAP 10 (8-16); ASPARTATE AMINO TRANSFERASE 535 U/L (10-37); BILIRUBIN,TOTAL 1.7 MG/DL (0.1-1.0); BLOOD UREA NITROGEN 69 MG/DL (7-18); BUN/CREATININE RATIO 36.1 (6.6-38.0); CALCIUM 8.7 MG/DL (8.5-10.1); CHLORIDE 92 MMOL/L (99-107); CREATININE 1.91 MG/DL (0.40-0.90); GLUCOSE 98 MG/DL (70-104); MAGNESIUM 2.4 MG/DL (1.5-2.4); PHOSPHORUS 3.3 MG/DL (2.3-4.5); POTASSIUM 4.1 MMOL/L (3.5-5.1); SODIUM 125 MMOL/L (135-145); TOTAL CARBON DIOXIDE 22.7 MMOL/L (24-32); TOTAL PROTEIN 6.1 G/DL (6.4-8.2); eGFR 26 ML/MIN
--- NOTE | 2019-02-15 06:28 | NUR ---
Patient in room [place] 357. I have received report from Vinod BARRY and had the opportunity to ask questions and assume patient care.
--- NOTE | 2019-02-15 06:28 | NUR ---
report given to JHONNY Hartley
[2019-02-15 06:38] LABS: HEMATOCRIT 28.5 % (35.0-45.0); HEMOGLOBIN 9.6 g/dl (12.0-16.0); MEAN CORPUSCULAR HGB CONC 33.6 g/dL (33.0-36.5); MEAN CORPUSCULAR VOLUME 89.4 FL (78-98); PLATELET COUNT 193 X10'3 (140-440); RED BLOOD COUNT 3.19 X10'6 (4.20-5.60); RED CELL DISTRIBUTION WIDTH 16.7 % (11.5-14.5); WHITE BLOOD COUNT 15.2 X10'3 (4.5-11.0)
[2019-02-15 07:00] VITALS: BP 123/66
[2019-02-15] MEDS: K and/or MAG REPLACEMENT MC SCH (08:00)
[2019-02-15] MEDS: CefTRIAXone/D5W-Rocephin 1gm 50 ML IV SCH (08:15)
[2019-02-15] MEDS: lactobacillus rhamnosus 10,000 MMU CELLS/CAPSULE PO SCH (08:16)
[2019-02-15] MEDS: levoTHYROXINE 25mcg tablet PO SCH (08:16)
[2019-02-15] MEDS: spironolactone 50 MG tablet PO SCH (08:16)
[2019-02-15] MEDS: digoxin 125mcg (0.125mg) tablet PO SCH (08:16)
[2019-02-15] MEDS: pantoprazole 40mg Tablet.DR PO SCH (08:16)
[2019-02-15] MEDS: potassium Cl 20 mEq SR tablet PO SCH (08:17)
[2019-02-15] MEDS: thiamine inj. 100 MG in normal saline 100ml IV soln 99 ML IV SCH (09:47)
[2019-02-15] MEDS: MACITENTAN 10 MG PO SCH (10:40)
[2019-02-15] MEDS: MVI, adult No.4 with vit. K 10 ML in dextrose 5% water 500ml 500 ML IV SCH ×2 (10:43)
[2019-02-15 11:00] VITALS: BP 113/61
[2019-02-15] MEDS ORDERED: PANT40TA4 PO (11:21)
--- NOTE | 2019-02-15 13:12 | NUR ---
Patient has an order for discharge. Per patient, her is sick so he won't be able to give her a ride. She said she is still trying to contact a friend to give her a ride. She also says she only wears oxygen at home during the night. Patient's O2 sat on room air is 93%.
[2019-02-15 13:50] LABS: HEMATOCRIT 28.9 % (35.0-45.0); HEMOGLOBIN 9.9 g/dl (12.0-16.0); MEAN CORPUSCULAR HGB CONC 34.3 g/dL (33.0-36.5); MEAN CORPUSCULAR VOLUME 90.5 FL (78-98); MEAN PLATELET VOLUME 10.2 FL (7.4-10.4); PLATELET COUNT 173 X10'3 (140-440); RED BLOOD COUNT 3.19 X10'6 (4.20-5.60); RED CELL DISTRIBUTION WIDTH 16.8 % (11.5-14.5); WHITE BLOOD COUNT 16.4 X10'3 (4.5-11.0)
--- NOTE | 2019-02-15 14:24 | NUR ---
Improvement Specialist Kristen told me that she spoke to the Megha regarding ride issue to go home and having no money to pay for the new prescription. Charge nurse eHlena aware of this issue too. Kristen sent a page message to the Senior Net C Developer to assist with the situation
--- NOTE | 2019-02-15 15:22 | NUR ---
Discharge instructions given to patient, patient verbalized understanding of all instructions made. Peripheral IV catheter removed, tip intact. Instructed patient to ensure she has all the belongings with her before leaving. Returned patient's own meds that was stored in the pharmacy. Patient stated that her is coming to the hospital to bring her clothes and to pick her up. Per patient she has a vehicle here at the hospital parking lot and that she will be driving home following her . Patient she would be fine driving the vehicle to go home and that she will take her time driving. Addendum: 02/15/19 at 1528 by Salina Ram RN Patient was instructed to machine operator picker her new prescription at [facility] pharmacy before heading home
--- NOTE | 2019-02-15 16:00 | NUR ---
came by to fruit picker machine operator patient.
== END 2019-02-15 15:59 | disposition home or self-care (01) | DRG 393 ==
LOC: ER 15:26 → ED HOLD 19:02 → EDBEDREQ 20:22 → SUR 3N 21:15 → ICU 2S 23:30 → SUR 3N 02-14 15:30
PROVIDERS: ADMIT Family Medicine; ATTEND Family Medicine
PROC: 30233L1 Transfusion of Nonautologous Fresh Plasma into Peripheral Vein, Percutaneous Approach (ICD-10-PCS; 2019-02-12)
PROC: 30233K1 Transfusion of Nonautologous Frozen Plasma into Peripheral Vein, Percutaneous Approach (ICD-10-PCS; 2019-02-12)
PROC: 0DB68ZZ Excision of Stomach, Via Natural or Artificial Opening Endoscopic (ICD-10-PCS; principal; 2019-02-13)
PROC: 30233N1 Transfusion of Nonautologous Red Blood Cells into Peripheral Vein, Percutaneous Approach (ICD-10-PCS; 2019-02-13)
DX: K31.7 Polyp of stomach and duodenum (principal); E43 Unspecified severe protein-calorie malnutrition; I81 Portal vein thrombosis; D68.9 Coagulation defect, unspecified; E87.1 Hypo-osmolality and hyponatremia; J81.1 Chronic pulmonary edema; D62 Acute posthemorrhagic anemia; I85.00 Esophageal varices without bleeding; K70.31 Alcoholic cirrhosis of liver with ascites; I95.9 Hypotension, unspecified; I27.21 Secondary pulmonary arterial hypertension; E03.9 Hypothyroidism, unspecified; I10 Essential (primary) hypertension; Z79.01 Long term (current) use of anticoagulants; Z87.19 Personal history of other diseases of the digestive system; Z87.891 Personal history of nicotine dependence; Z90.81 Acquired absence of spleen; Z68.26 Body mass index [BMI] 26.0-26.9, adult
CPT/HCPCS: 36415; 36600; 43251; 76700; 80048; 80053; 80061; 80074; 82140; 82272; 82803; 82948; 83605; 83735; 84100; 84145; 84484; 85018; 85025; 85027; 85379; 85384; 85610; 85730; 86885; 86900; 86901; 86920; 87040; 87081; 88305; 88341; 88342; 88360; 93975; 96361; 96365; 99152; 99285; C1773; C9113; G0378; J0696; J2250; J3010; J3411; J3430; J7030; J7060; P9016; P9059